=== PATIENT | male | born 1975 | race Caucasian/White ===

== ENCOUNTER 2017-06-27 19:27 | Emergency (ER) | payer BC, OTHER ==
[2017-06-27 20:04] VITALS: BP 112/57; PULSE 68; TEMP 97.2; BMI 47.5
[2017-06-27 20:22] LABS: BASO % 0.8 % (0-2.0); EOS % 0.5 % (0-4.5); HEMATOCRIT 47.4 % (35.4-49); HEMOGLOBIN 15.9 GM/dL (11.7-16.9); LYMPH % 12.1 % (8-40); MCH 29.7 pg (25.7-33.7); MCHC 33.6 g/dl (32.0-35.9); MEAN CELL VOLUME 88.5 fl (80-96); MEAN PLT VOLUME 9.1 fl (7.5-11.1); MONO % 6.5 % (3.8-10.2); NEUT % 80.1 % (42.8-82.8); RBC 5.36 M/mm3 (4.00-5.60); RDW 13.4 % (11.9-15.9); WHITE BLOOD COUNT 17.8 K/mm3 (4.0-10.0)
[2017-06-27 20:25] LABS: INR 1.14 (0.82-1.09); PROTHROMBIN TIME (PATIENT) 12.9 SEC (9.7-13.0)
[2017-06-27 20:36] LABS: ALBUMIN 3.6 g/dl (3.4-5.0); ANION GAP 9 (8-16); BLOOD UREA NITROGEN 13 mg/dL (7-18); CALCIUM 8.9 mg/dL (8.5-10.1); CHLORIDE 102 mmol/L (98-107); CO2 27 mmol/L (21-32); CREATININE 0.9 mg/dL (0.7-1.3); POTASSIUM 4.1 mmol/L (3.5-5.1); SGOT/AST 35 U/L (15-37); SGPT/ALT 82 U/L (12-78); SODIUM 138 mmol/L (136-145)
[2017-06-27 20:39] LABS: ALK PHOS 111 U/L (45-117); BILIRUBIN,TOTAL 0.5 mg/dL (0.2-1.0); TOT PROT 7.9 g/dl (6.4-8.2)
[2017-06-27 20:43] LABS: GLUCOSE,RANDOM 314 mg/dL (74-106)
[2017-06-27] MEDS ORDERED: SODIUM CHLORIDE 1,000 ML IV STA (20:47)
[2017-06-27 20:58] LABS: PLATELET COUNT 339 K/MM3 (134-434)
[2017-06-27] MEDS ORDERED: ACETAMINOPHEN 325 MG TABLET (FP) ONE (21:01)
[2017-06-27] MEDS ORDERED: ONDANSETRON 4 MG/2 ML VIAL IVPUSH STA (21:02)
[2017-06-27] MEDS ORDERED: PANTOPRAZOLE SODIUM 40 MG VIAL IVPUSH ONE (21:04)
[2017-06-27] MEDS ORDERED: ONDANSETRON 4 MG/2 ML VIAL ONE (21:06)
[2017-06-27] MEDS ORDERED: PANTOPRAZOLE SODIUM 40 MG VIAL ONE (21:06)
--- NOTE | 2017-06-27 21:07 | PDOC ---
History of Present Illness - General History Source: Patient, Family Exam Limitations: No Limitations - History of Present Illness Initial Comments: 06/27/17 21:07 The patient is a 41 year old male with past medical history of heartburn (tums to alleviate), prediabetes presents to the emergency department with nausea and vomiting. The patient reports he was at [employer] an hour prior to the ED, he had a burger, chilly, and a loera then started to feel nauseous, 3 episodes of vomiting (nonbloody, nonbilious), describes pain to the midepigastric region, worse than heartburn, feeling of hot and cold sensation and excess sweating. The patient reports he started the day with 2 bags of chips, breakfast at [employer] around lunch time. The patient reports being uncomfortable. Denies diarrhea or constipation. Denies dizziness or lightheadedness. Social history: Smokes 1 pack of cigarettes a day since a teenager, daily use of marijuana, last time today morning. Allergies: NKDA <Sangita Pugh - Last Filed: 06/28/17 01:00> <Bertha Nguyen - Last Filed: 06/28/17 01:37> - General Chief Complaint: Chest Pain Stated Complaint: CHEST PAIN Time Seen by Provider: 06/27/17 19:41 Past History <Sangita Pugh - Last Filed: 06/28/17 01:00> - Suicide/Smoking/Psychosocial Hx Smoking History: Unknown if ever smoked Have you smoked in the past 12 months: No Information on smoking cessation initiated: No Hx Alcohol Use: No Drug/Substance Use Hx: No <Bertha Nguyen - Last Filed: 06/28/17 01:37> - Past Medical History Allergies/Adverse Reactions: Allergies Allergy/AdvReac Type Severity Reaction Status Date / Time No Known Allergies Allergy Verified 06/27/17 20:04 Home Medications: Ambulatory Orders Ondansetron [Zofran -] 8 mg PO BID PRN #14 tablet 06/28/17 Review of Systems - Review of Systems Able to Perform ROS?: Yes Comments:: 06/27/17 21:08 CONSTITUTIONAL: hot and cold sensation. And excess sweating Absent: fever, no chills, no fatigue EYES: Absent: visual changes ENT: Absent: ear pain, no sore throat CARDIOVASCULAR: Absent: chest pain, no palpitations RESPIRATORY: Absent: cough, no SOB GI: (+) Nausea and vomiting. Absent: abdominal pain, no constipation, no diarrhea GENITOURINARY: Absent: dysuria, no frequency, no hematuria MUSKULOSKELETAL: Absent: back pain, no arthralgia, no myalgia SKIN: Absent: rash NEURO: Absent: headache <Sangita Pugh - Last Filed: 06/28/17 01:00> *Physical Exam - Vital Signs Last Vital Signs Temp Pulse Resp BP Pulse Ox 97.2 F L 68 25 H 112/57 100 06/27/17 20:01 06/27/17 20:01 06/27/17 20:01 06/27/17 20:01 06/27/17 20:01 - Physical Exam Comments: 06/27/17 21:08 GENERAL: (+) Obese male. Visibly discomfortable Well-appearing, well-nourished. No apparent distress. HEENT: Normocephalic, atraumatic. PERRL, EOM intact. CARDIOVASCULAR: Normal S1, S2. Regular rate and rhythm. PULMONARY: Clear to auscultation bilaterally. ABDOMEN: No pain upon palpation. Soft, non-distended, non-tender. EXTREMITIES: Normal ROM in all four extremities. No gross deformities. SKIN: Warm, dry. No rash NEUROLOGICAL: No focal neurological deficits. <Sangita Pugh - Last Filed: 06/28/17 01:00> - Vital Signs Last Vital Signs Temp Pulse Resp BP Pulse Ox 97.2 F L 68 25 H 112/57 100 06/27/17 20:01 06/27/17 20:01 06/27/17 20:01 06/27/17 20:01 06/27/17 20:01 <Bertha Nguyen - Last Filed: 06/28/17 01:37> ED Treatment Course - LABORATORY CBC & Chemistry Diagram: 06/27/17 20:07 06/27/17 20:07 - ADDITIONAL ORDERS Additional order review: Laboratory Results 06/27/17 06/27/17 20:07 20:07 PT with INR 12.90 INR 1.14 Sodium 138 Potassium 4.1 Chloride 102 Carbon Dioxide 27 Anion Gap 9 BUN 13 Creatinine 0.9 Creat Clearance w eGFR > 60 Random Glucose 314 H* Calcium 8.9 Total Bilirubin 0.5 AST 35 ALT 82 H Alkaline Phosphatase 111 Creatine Kinase 306 Creatine Kinase Index 0.7 CK-MB (CK-2) 2.262 Troponin I < 0.02 Total Protein 7.9 Albumin 3.6 06/27/17 20:07 RBC 5.36 MCV 88.5 MCHC 33.6 RDW 13.4 MPV 9.1 Neutrophils % 80.1 Lymphocytes % 12.1 Monocytes % 6.5 Eosinophils % 0.5 Basophils % 0.8 - Medications Given in the ED: ED Medications Discontinued Medications Generic Name Dose Route Start Last Admin Trade Name Freq PRN Reason Stop Dose Admin Ondansetron HCl 8 mg 06/27/17 21:02 06/27/17 21:04 Zofran Injection IVPUSH 06/27/17 21:03 8 mg ONCE STA Administration Pantoprazole Sodium 40 mg 06/27/17 21:04 06/27/17 21:05 Protonix Iv IVPUSH 06/27/17 21:05 40 mg ONCE ONE Administration <Sangita Pugh - Last Filed: 06/28/17 01:00> - LABORATORY CBC & Chemistry Diagram: 06/27/17 20:07 06/27/17 20:07 - ADDITIONAL ORDERS Additional order review: Laboratory Results 06/27/17 06/27/17 20:07 20:07 PT with INR 12.90 INR 1.14 Sodium 138 Potassium 4.1 Chloride 102 Carbon Dioxide 27 Anion Gap 9 BUN 13 Creatinine 0.9 Creat Clearance w eGFR > 60 Random Glucose 314 H* Calcium 8.9 Total Bilirubin 0.5 AST 35 ALT 82 H Alkaline Phosphatase 111 Creatine Kinase 306 Creatine Kinase Index 0.7 CK-MB (CK-2) 2.262 Troponin I < 0.02 Total Protein 7.9 Albumin 3.6 06/27/17 20:07 RBC 5.36 MCV 88.5 MCHC 33.6 RDW 13.4 MPV 9.1 Neutrophils % 80.1 Lymphocytes % 12.1 Monocytes % 6.5 Eosinophils % 0.5 Basophils % 0.8 - RADIOLOGY Radiology Studies Ordered: Category Date Time Status CHEST X-RAY PORTABLE* [RAD] Stat Radiology 06/27/17 21:05 Ordered - Medications Given in the ED: ED Medications Discontinued Medications Generic Name Dose Route Start Last Admin Trade Name Freq PRN Reason Stop Dose Admin Ondansetron HCl 8 mg 06/27/17 21:02 06/27/17 21:04 Zofran Injection IVPUSH 06/27/17 21:03 8 mg ONCE STA Administration Pantoprazole Sodium 40 mg 06/27/17 21:04 06/27/17 21:05 Protonix Iv IVPUSH 06/27/17 21:05 40 mg ONCE ONE Administration <Bertha Nguyen - Last Filed: 06/28/17 01:37> Medical Decision Making - Medical Decision Making 06/28/17 01:00 Brittany Bridges M.D. read at: 06/28/2017 00:54 EST Minimally thickened hepatic flexure of colon, suspect due to underdistention but cannot exclude colitis. No bowel obstruction, diverticulitis, free fluid or free air. Normal appendix. Unremarkable pancreas, kidneys and gallbladder. Minimal hepatomegaly. Small umbilical hernia containing fat. <Sangita Pugh - Last Filed: 06/28/17 01:00> - Medical Decision Making 06/28/17 01:35 -pt's symptoms resolved -zofran prescription was sent to the [facility] pharmacy IMP Gastritis <Bertha Nguyen - Last Filed: 06/28/17 01:37> *DC/Admit/Observation/Transfer <Sangita Pugh - Last Filed: 06/28/17 01:00> <Bertha Nguyen - Last Filed: 06/28/17 01:37> Diagnosis at time of Disposition: Epigastric abdominal pain Gastritis Qualifiers: Gastritis type: unspecified gastritis Chronicity: acute Gastritis bleeding: without bleeding Qualified Code(s): K29.00 - Acute gastritis without bleeding - Discharge Dispostion Disposition: HOME Condition at time of disposition: Stable - Prescriptions Prescriptions: Ondansetron [Zofran -] 8 mg PO BID PRN #14 tablet PRN Reason: Nausea And/Or Vomiting - Patient Instructions Printed Discharge Instructions: DI for Gastritis, DI for Epigastric Pain Additional Instructions: -please advance your diet as tolerated,start with liquids first then try solid foods such as bananas,toast,applesauce or rice -return for any worsening symptoms -A prescription for zofran(to prevent vomiting) has been sent to your pharmacy -please continue to take your usual medication for your acid reflux
[2017-06-27] MEDS ORDERED: morphine CARPU-JECT 4 MG/1 ML DISP.SYRIN IVPUSH ONE (22:40)
[2017-06-27] MEDS ORDERED: MORPHINE SULFATE 10 MG/1 ML *VIAL ONE (22:51)
--- NOTE | 2017-06-28 11:54 | EKG ---
Test Reason : Blood Pressure : / mmHG Vent. Rate : 053 BPM Atrial Rate : 053 BPM P-R Int : 142 ms QRS Dur : 100 ms QT Int : 472 ms P-R-T Axes : 035 083 073 degrees QTc Int : 442 ms SINUS BRADYCARDIA OTHERWISE NORMAL ECG NO PREVIOUS ECGS AVAILABLE Confirmed by MD RASTA, SHANNA ([id number]) on 06/28/2017 11:54:20 AM Referred By: Confirmed By:SHANNA MAGDALENO MD
== END 2017-06-28 02:11 | disposition home or self-care (01) ==
LOC: JER 19:27
PROC: 3E033GC Introduction of Other Therapeutic Substance into Peripheral Vein, Percutaneous Approach (ICD-10-PCS; principal; 2017-06-27)
PROC: 3E033GC Introduction of Other Therapeutic Substance into Peripheral Vein, Percutaneous Approach (ICD-10-PCS; 2017-06-27)
DX: K29.00 Acute gastritis without bleeding (principal)
CPT/HCPCS: 36415; 71045-TC-FY; 74177-TC; 80053; 82550; 82553; 84484; 85025; 85610; 93005; 93010; 96374; 96375; 99281-25; J7030